=== PATIENT | female | born 1950 ===

== ENCOUNTER → 2022-05-15 | Outpatient (CLI) | payer OTHER | LOC: PLD 08:01 → LAB SHORT 08:01 | DX: C44.719 Basal cell carcinoma of skin of left lower limb, including hip (principal); D22.71 Melanocytic nevi of right lower limb, including hip | CPT/HCPCS: 88305 ==

== ENCOUNTER → 2023-07-10 | Outpatient (CLI) | payer OTHER | LOC: LAB 12:55 → LAB SHORT 12:55 | DX: C44.719 Basal cell carcinoma of skin of left lower limb, including hip (principal); D23.62 Other benign neoplasm of skin of left upper limb, including shoulder | CPT/HCPCS: 88305 ==